=== PATIENT | male | born 1960 | race Two or more races ===

== ENCOUNTER 2018-01-22 06:33 | Inpatient (IN) | payer OTHER ==
[~2018-01-22] VITALS: Ht 180.3 cm; Wt 99.8 kg
[2018-01-22] MEDS ORDERED: ACETAMINOPHEN 325 MG TABLET ONE (07:12)
[2018-01-22] MEDS ORDERED: CELECOXIB 100 MG CAPSULE ONE (07:12)
[2018-01-22] MEDS ORDERED: CEFAZOLIN SODIUM/DEXTROSE,ISO 50 ML IV ONE (07:12)
[2018-01-22] MEDS ORDERED: oxyCODONE HCL SR 10MG TAB.SR.12H PO ONE (07:12)
[2018-01-22] MEDS ORDERED: MIDAZOLAM HCL 2 MG/2ML VIAL ONE (08:46)
[2018-01-22] MEDS ORDERED: MIDAZOLAM 50 MG/10 ML VIAL ONE (08:47)
[2018-01-22] MEDS ORDERED: BUPIVACAINE 0.75% DEXT-PF 2 ML AMPUL ONE (08:47)
[2018-01-22] MEDS ORDERED: MORPHINE SULFATE/PF 10 MG/10ML (1MG/ML) AMPUL ONE (08:48)
[2018-01-22] MEDS ORDERED: BACITRACIN 50000 UNITS/VIAL ONE (08:55)
[2018-01-22] MEDS ORDERED: TRANEXAMIC ACID 3,000 MG in SODIUM CHLORIDE IRRIG SOLUTION 70 ML IR ONE (09:30)
[2018-01-22] MEDS ORDERED: HYDROMORPHONE INJ 2 MG/ML DISP.SYRIN ONE (11:23)
[2018-01-22 12:00] VITALS: BP 141/79
[2018-01-22] MEDS ORDERED: diphenhydrAMINE HCL 25 MG CAPSULE PO PRN (12:00)
[2018-01-22] MEDS ORDERED: MAG HYDROX/AL HYDROX/SIMETH 30 ML UDC PO PRN (12:00)
[2018-01-22] MEDS ORDERED: MAGNESIUM HYDROXIDE 30 ML UDC PO PRN (12:00)
[2018-01-22] MEDS ORDERED: COLACE 250 MG CAPSULE PO PRN (12:00)
[2018-01-22] MEDS ORDERED: MENTHOL/CETYLPYRD (CEPACOL) 1 LOZ LOZENGE MM PRN (12:00)
[2018-01-22] MEDS ORDERED: ZOFRAN 4mg/2ML IV PRN (12:00)
[2018-01-22] MEDS ORDERED: SENOKOT 8.6 MG TABLET PO PRN (12:00)
[2018-01-22] MEDS ORDERED: CLONIDINE HCL 0.1 MG TABLET PO PRN (12:00)
[2018-01-22] MEDS ORDERED: DULCOLAX 10 MG/SUPP.RECT RC PRN (12:00)
[2018-01-22] MEDS ORDERED: AMBIEN 5 MG TABLET PO PRN (12:00)
[2018-01-22] MEDS ORDERED: HYDROMORPHONE INJ 2 MG/ML DISP.SYRIN IV PRN (12:00)
[2018-01-22] MEDS ORDERED: NALOXONE HCL 0.4 MG/ML AMPUL IV PRN (12:00)
[2018-01-22] MEDS ORDERED: HYDROCODONE/APAP 10/325MG 1 EA TABLET PO PRN (12:30)
[2018-01-22] MEDS: oxyCODONE IR immediate release 5 MG PO PRN ×3 (14:49→21:20)
[2018-01-22] MEDS: IV D5/0.45 NACL 1,000 ML IV PRN (15:59)
[2018-01-22 16:00] VITALS: BP_SYST 151; BP_DIAS 73; BP_DIAS 88
[2018-01-22] MEDS: ANCEF 1 G in IV D5W 50 ML IV SCH (17:18)
[2018-01-22] MEDS: ASPIRIN 325 MG TABLET PO SCH (17:19)
[2018-01-22 20:00] VITALS: BP 121/73
[2018-01-22] MEDS: TAMSULOSIN 0.4 MG CAP.SR.24H PO SCH (21:19)
[2018-01-22] MEDS: FAMOTIDINE (20 MG) 20 MG TABLET PO SCH (21:21)
[2018-01-22] MEDS ORDERED: TRAM50TA2 PO (23:06)
[2018-01-23] VITALS: BP 110/73
[2018-01-23] MEDS: IV D5/0.45 NACL 1,000 ML IV PRN (00:50)
[2018-01-23] MEDS: oxyCODONE IR immediate release 5 MG PO PRN ×6 (00:53→20:01)
[2018-01-23] MEDS: ANCEF 1 G in IV D5W 50 ML IV SCH (01:15)
[2018-01-23 04:00] VITALS: BP 122/69
[2018-01-23 07:49] LABS: HEMOGLOBIN 13.8 g/dL (13.5-17.5)
[2018-01-23 08:00] VITALS: BP 135/75
[2018-01-23] MEDS: DOCUSATE SODIUM 100 MG CAPSULE PO SCH ×2 (08:58→16:35)
[2018-01-23] MEDS: ASPIRIN 325 MG TABLET PO SCH ×2 (08:58→16:35)
[2018-01-23] MEDS: FAMOTIDINE (20 MG) 20 MG TABLET PO SCH ×2 (08:58→21:19)
[2018-01-23 16:00] VITALS: BP 131/75
[2018-01-23] MEDS: HYDROMORPHONE INJ 2 MG/ML DISP.SYRIN SQ PRN (16:46)
[2018-01-23 20:00] VITALS: BP 122/73
[2018-01-23] MEDS: TAMSULOSIN 0.4 MG CAP.SR.24H PO SCH (21:19)
[2018-01-24] MEDS: oxyCODONE IR immediate release 5 MG PO PRN ×5 (01:12→21:02)
[2018-01-24 06:31] LABS: BASOPHILS % (AUTO) 0.3 % (0.0-2.0); EOSINOPHILS % (AUTO) 0.3 % (0.0-6.0); HEMATOCRIT 40 % (39-51); HEMOGLOBIN 13.9 g/dL (13.5-17.5); LYMPHOCYTES % (AUTO) 12.6 % (20.0-44.0); MEAN CORPUSCULAR HEMOGLOBIN 32 PG (26.0-33.0); MEAN CORPUSCULAR HGB CONC 34 g/dl (31.0-36.0); MEAN CORPUSCULAR VOLUME 94 fL (80-96); MONOCYTES # (AUTO) 0.5 /CMM (0.1-1.30); MONOCYTES % (AUTO) 7.1 % (2.0-12.0); NEUTROPHILS % (AUTO) 79.7 % (43.0-81.0); PLATELET COUNT (AUTO) 134 /CMM (150-450); WHITE BLOOD COUNT (AUTO) 7.6 K/uL (4.3-11.0)
[2018-01-24 08:00] VITALS: BP 132/99
[2018-01-24] MEDS: FAMOTIDINE (20 MG) 20 MG TABLET PO SCH ×2 (10:01→21:02)
[2018-01-24] MEDS: ASPIRIN 325 MG TABLET PO SCH ×2 (10:01→17:41)
[2018-01-24] MEDS: DOCUSATE SODIUM 100 MG CAPSULE PO SCH ×2 (10:01→17:41)
[2018-01-24] MEDS: HYDROMORPHONE INJ 2 MG/ML DISP.SYRIN SQ PRN ×2 (10:06→13:30)
[2018-01-24 16:00] VITALS: BP 149/89
[2018-01-24 20:00] VITALS: BP 121/61
[2018-01-24] MEDS: TAMSULOSIN 0.4 MG CAP.SR.24H PO SCH (21:02)
[2018-01-25] MEDS: oxyCODONE IR immediate release 5 MG PO PRN ×5 (00:48→11:19)
[2018-01-25 08:00] VITALS: BP 152/84
[2018-01-25] MEDS: DOCUSATE SODIUM 100 MG CAPSULE PO SCH (08:03)
[2018-01-25] MEDS: FAMOTIDINE (20 MG) 20 MG TABLET PO SCH (08:03)
[2018-01-25] MEDS: ASPIRIN 325 MG TABLET PO SCH (08:03)
[2018-01-25] MEDS ORDERED: ASPI-992 PO (11:03)
[2018-01-25] MEDS ORDERED: MAGN400O6 PO (11:03)
[2018-01-25] MEDS ORDERED: OXYC-128 PO (11:03)
[2018-01-25] MEDS: HYDROMORPHONE INJ 2 MG/ML DISP.SYRIN SQ PRN (12:23)
== END 2018-01-25 13:00 | disposition home or self-care (01) | DRG 470 ==
LOC: DS 06:33 → TELE 13:23 → MED 01-23 09:04
PROVIDERS: ADMIT Specialist; ATTEND Specialist
PROC: 0SRC0J9 Replacement of Right Knee Joint with Synthetic Substitute, Cemented, Open Approach (ICD-10-PCS; principal; 2018-01-22 09:15)
DX: M17.11 Unilateral primary osteoarthritis, right knee (principal); E66.9 Obesity, unspecified; Z68.30 Body mass index [BMI] 30.0-30.9, adult
CPT/HCPCS: 36415; 85025-TC; 85027-TC; 86850-TC; 86921-TC; 87081-TC; 88305-TC; 88311-TC; 97110-TC; 97116-TC; 97530-TC; 97760-TC; A4217; J0690; J1170; J2250; J2274; J3490; J7030; J7060; Q0163; Z7610